=== PATIENT | female | born 1935 | race Caucasian/White ===

== ENCOUNTER → 2017-02-16 | Outpatient (CLI) | payer MEDICARE, BC ==
--- NOTE | 2017-02-16 12:34 | REPMRS ---
Patient History The patient states she had a clinical breast exam in 02/18 Patient is postmenopausal and has history of other cancer at age 70. Family history of breast cancer in mother at age 50 or over. Benign excisional biopsy of the right breast. Digital Woman Screen Mammo: February 16, 2017 - Exam #: [id number] Bilateral CC and MLO view(s) were taken. Technologist: Ernestine Rodriguez, Technologist Prior study comparison: February 14, 2016, digital woman screen mammo performed at [facility]. February 12, 2015, digital woman screen mammo performed at [facility]. February 09, 2014, digital woman screen mammo performed at [facility]. FINDINGS: There are scattered fibroglandular densities. There has been no change in the appearance of the mammogram from the prior studies. There is contour deformity in the right breast unchanged post excisional biopsy. There is a mild amount of scattered fibroglandular density which is fairly symmetric. There is no interval development of dominant mass, architectural distortion, or clustered microcalcification suggestive of malignancy. ASSESSMENT: BI-RADS/ACR category 2 mammogram. Benign finding(s). Recommendation Routine screening mammogram in 1 year (for women over age 40). This mammogram was interpreted with the aid of an FDA-approved computer-aided dectection system. Electronically Signed By: Constantine Hightower MD 02/16/17 1205
== END ==
LOC: M WHC 11:18
PROVIDERS: ATTEND Nurse Practitioner Family
DX: Z12.31 Encounter for screening mammogram for malignant neoplasm of breast (principal); Z78.0 Asymptomatic menopausal state; Z92.89 Personal history of other medical treatment; Z80.3 Family history of malignant neoplasm of breast
CPT/HCPCS: G0202; G0463

== ENCOUNTER → 2018-02-02 | Outpatient (CLI) | payer MEDICARE, BC | LOC: M WHC 11:06 | DX: M81.0 Age-related osteoporosis without current pathological fracture (principal) | CPT/HCPCS: 77080 ==

== ENCOUNTER → 2018-08-12 | Outpatient (REF) | payer MEDICARE, BC ==
[2018-08-12 17:07] LABS: HEMATOCRIT 39.2 % (36.0-47.0); HEMOGLOBIN 12.6 g/dl (12.0-15.5); MEAN CORPUSCULAR HEMOGLOBIN 30.4 pg (27.0-33.0); MEAN CORPUSCULAR HGB CONC 32.1 g/dl (32.0-36.5); MEAN CORPUSCULAR VOLUME 94.5 fl (80.0-96.0); PLATELET COUNT, AUTOMATED 494 10^3/uL (150-450); RED BLOOD COUNT 4.15 10^6/uL (4.00-5.40); RED CELL DISTRIBUTION WIDTH 14.1 % (11.5-14.5); WHITE BLOOD COUNT 14.5 10^3/uL (4.0-10.0)
[2018-08-12 17:18] LABS: ALBUMIN 3.4 GM/DL (3.2-5.2); ALBUMIN/GLOBULIN RATIO 1.21 (1.00-1.93); ALKALINE PHOSPHATASE 202 U/L (45-117); ALT/SGPT 65 U/L (12-78); ANION GAP 8 MEQ/L (8-16); AST/SGOT 40 U/L (7-37); BILIRUBIN,TOTAL 0.4 MG/DL (0.2-1.0); BLOOD UREA NITROGEN 23 MG/DL (7-18); CALCIUM LEVEL 9.3 MG/DL (8.8-10.2); CARBON DIOXIDE LEVEL 31 MEQ/L (21-32); CHLORIDE LEVEL 104 MEQ/L (98-107); CREATININE FOR GFR 1.09 MG/DL (0.55-1.30); GLOMERULAR FILTRATION RATE 51.2 (>32); GLUCOSE, FASTING 102 MG/DL (70-100); POTASSIUM SERUM 4.4 MEQ/L (3.5-5.1); SODIUM LEVEL 143 MEQ/L (136-145); TOTAL PROTEIN 6.2 GM/DL (6.4-8.2)
== END ==
LOC: M SFHCCLAY 10:18
DX: C85.89 Other specified types of non-Hodgkin lymphoma, extranodal and solid organ sites (principal); I10 Essential (primary) hypertension
CPT/HCPCS: 80053

== ENCOUNTER → 2018-08-16 | Outpatient (CLI) | payer MEDICARE, BC | LOC: M CLY 14:42 | DX: J90 Pleural effusion, not elsewhere classified (principal); I51.7 Cardiomegaly; R93.7 Abnormal findings on diagnostic imaging of other parts of musculoskeletal system; M79.89 Other specified soft tissue disorders | CPT/HCPCS: 71046; 80048 ==

== ENCOUNTER → 2018-08-16 | Outpatient (REF) | payer MEDICARE, BC ==
[2018-08-17 12:07] LABS: ANION GAP 7 MEQ/L (8-16); BLOOD UREA NITROGEN 22 MG/DL (7-18); CALCIUM LEVEL 9.1 MG/DL (8.8-10.2); CARBON DIOXIDE LEVEL 32 MEQ/L (21-32); CHLORIDE LEVEL 105 MEQ/L (98-107); CREATININE FOR GFR 1.14 MG/DL (0.55-1.30); GLOMERULAR FILTRATION RATE 48.6 (>32); GLUCOSE, FASTING 100 MG/DL (70-100); POTASSIUM SERUM 4.5 MEQ/L (3.5-5.1); SODIUM LEVEL 144 MEQ/L (136-145)
== END ==
LOC: M SFHCCLAY 14:32
DX: M79.89 Other specified soft tissue disorders (principal); R06.02 Shortness of breath
CPT/HCPCS: 80048

== ENCOUNTER → 2018-08-18 | Outpatient (CLI) | payer MEDICARE, BC | LOC: M CARPUL 07:56 | DX: I50.9 Heart failure, unspecified (principal); I31.3 Pericardial effusion (noninflammatory); J90 Pleural effusion, not elsewhere classified; I34.0 Nonrheumatic mitral (valve) insufficiency | CPT/HCPCS: 93306 ==

== ENCOUNTER → 2018-08-20 | Outpatient (REF) | payer MEDICARE, BC ==
[2018-08-20 16:33] LABS: ALBUMIN 3.3 GM/DL (3.2-5.2); ANION GAP 7 MEQ/L (8-16); BLOOD UREA NITROGEN 26 MG/DL (7-18); CALCIUM LEVEL 9.5 MG/DL (8.8-10.2); CARBON DIOXIDE LEVEL 32 MEQ/L (21-32); CHLORIDE LEVEL 97 MEQ/L (98-107); GLOMERULAR FILTRATION RATE 45.8 (>32); GLUCOSE, FASTING 99 MG/DL (70-100); PHOSPHORUS LEVEL 3.8 MG/DL (2.5-4.9); POTASSIUM SERUM 4.2 MEQ/L (3.5-5.1); SODIUM LEVEL 136 MEQ/L (136-145)
== END ==
LOC: M SFHCCLAY 12:02
DX: I10 Essential (primary) hypertension (principal)
CPT/HCPCS: 80069

== ENCOUNTER → 2018-11-02 | Outpatient (REF) | payer MEDICARE, BC ==
[~2018-11-02] MED LIST: AMLO2.5T3 PO; ANOR1AER PO; ASPI81TA85 PO; CALTCHW5 PO; CAND16TA7 PO; CENTCHW4 PO; CLAR10CA3 PO; FLON1SPR NARES; FURO20TA2 PO; VITA200028 PO; VITA500C24 PO
[2018-11-02 16:38] LABS: ALBUMIN 3.8 GM/DL (3.2-5.2); CALCIUM LEVEL 9.9 MG/DL (8.8-10.2); CREATININE FOR GFR 1.35 MG/DL (0.55-1.30); FREE T4 0.93 NG/DL (0.76-1.46); POTASSIUM SERUM 4.8 MEQ/L (3.5-5.1); THYROID STIMULATING HORMONE 5.28 uIU/ML (0.358-3.740)
== END ==
LOC: M SFHCCLAY 10:27
PROVIDERS: ATTEND Family Medicine
DX: I50.9 Heart failure, unspecified (principal); R60.9 Edema, unspecified

== ENCOUNTER → 2019-02-11 | Outpatient (REF) | payer MEDICARE, BC | LOC: M SFHCCLAY 13:54 | PROVIDERS: ATTEND Family Medicine | DX: I10 Essential (primary) hypertension (principal); Z95.2 Presence of prosthetic heart valve; Z53.8 Procedure and treatment not carried out for other reasons ==

== ENCOUNTER → 2019-02-14 | Outpatient (REF) | payer MEDICARE, BC ==
[2019-02-14 12:52] LABS: CALCIUM LEVEL 9.1 MG/DL (8.8-10.2); CREATININE FOR GFR 0.99 MG/DL (0.55-1.30); POTASSIUM SERUM 4.9 MEQ/L (3.5-5.1)
== END ==
LOC: M SFHCCLAY 09:44
PROVIDERS: ATTEND Family Medicine
DX: I10 Essential (primary) hypertension (principal); Z95.2 Presence of prosthetic heart valve

== ENCOUNTER → 2019-03-22 | Outpatient (REF) | payer MEDICARE, BC ==
[2019-03-22 18:12] LABS: ALBUMIN 3.3 GM/DL (3.2-5.2); CALCIUM LEVEL 9.2 MG/DL (8.8-10.2); CREATININE FOR GFR 1.17 MG/DL (0.55-1.30); PHOSPHORUS LEVEL 3.7 MG/DL (2.5-4.9); POTASSIUM SERUM 4.8 MEQ/L (3.5-5.1)
== END ==
LOC: M LABDRAWC 17:06
PROVIDERS: ATTEND Physician Assistant
DX: I11.0 Hypertensive heart disease with heart failure (principal)

== ENCOUNTER → 2019-07-07 | Outpatient (REF) | payer MEDICARE, BC ==
[2019-07-07 11:34] LABS: HEMATOCRIT 30.9 % (36.0-47.0); HEMOGLOBIN 9.7 g/dl (12.0-15.5); MEAN CORPUSCULAR HEMOGLOBIN 23.1 pg (27.0-33.0); MEAN CORPUSCULAR HGB CONC 31.4 g/dl (32.0-36.5); MEAN CORPUSCULAR VOLUME 73.6 fl (80.0-96.0); PLATELET COUNT, AUTOMATED 677 10^3/uL (150-450); WHITE BLOOD COUNT 10.6 10^3/uL (4.0-10.0)
[2019-07-07 12:07] LABS: CALCIUM LEVEL 9.1 MG/DL (8.8-10.2); CREATININE FOR GFR 0.99 MG/DL (0.55-1.30); POTASSIUM SERUM 4.7 MEQ/L (3.5-5.1)
== END ==
LOC: M SFHCCLAY 09:19
PROVIDERS: ATTEND Family Medicine
DX: I10 Essential (primary) hypertension (principal); Z95.2 Presence of prosthetic heart valve; J44.9 Chronic obstructive pulmonary disease, unspecified

== ENCOUNTER → 2019-08-12 | Outpatient (REF) | payer MEDICARE, BC ==
[~2019-08-12] MED LIST changes: +AMLO10TA5 PO; +CLOP75TA2; +D 101000 PO; +FERR5ELX PO; +MOME0.1S TOP; +SPIR-10; +TRIA1CR80 TOP
[2019-08-12 16:44] LABS: HEMATOCRIT 38.9 % (36.0-47.0); MEAN CORPUSCULAR HEMOGLOBIN 25.1 pg (27.0-33.0); MEAN CORPUSCULAR HGB CONC 30.8 g/dl (32.0-36.5); MEAN CORPUSCULAR VOLUME 81.2 fl (80.0-96.0); PLATELET COUNT, AUTOMATED 406 10^3/uL (150-450); RED BLOOD COUNT 4.79 10^6/uL (4.00-5.40); WHITE BLOOD COUNT 11.1 10^3/uL (4.0-10.0)
[2019-08-12 16:47] LABS: PERCENT SATURATION 61.5 % (13.2-45.0)
== END ==
LOC: M SFHCCLAY 10:03
PROVIDERS: ATTEND Family Medicine
DX: D50.9 Iron deficiency anemia, unspecified (principal)

== ENCOUNTER → 2019-10-12 | Outpatient (REF) | payer MEDICARE, BC ==
[~2019-10-12] MED LIST changes: +LEVA1TAB2 PO
[2019-10-12 16:49] LABS: HEMATOCRIT 41.8 % (36.0-47.0); MEAN CORPUSCULAR HEMOGLOBIN 25.9 pg (27.0-33.0); MEAN CORPUSCULAR HGB CONC 31.1 g/dl (32.0-36.5); MEAN CORPUSCULAR VOLUME 83.4 fl (80.0-96.0); PLATELET COUNT, AUTOMATED 324 10^3/uL (150-450); RED BLOOD COUNT 5.01 10^6/uL (4.00-5.40); WHITE BLOOD COUNT 11.4 10^3/uL (4.0-10.0)
[2019-10-12 16:57] LABS: CALCIUM LEVEL 9.1 MG/DL (8.8-10.2); CREATININE FOR GFR 1.23 MG/DL (0.55-1.30); GLOMERULAR FILTRATION RATE 44.4 (>32); POTASSIUM SERUM 4.6 MEQ/L (3.5-5.1)
== END ==
LOC: M SFHCCLAY 10:15
PROVIDERS: ATTEND Family Medicine
DX: D50.9 Iron deficiency anemia, unspecified (principal); I10 Essential (primary) hypertension

== ENCOUNTER → 2019-10-17 | Outpatient (REF) | payer MEDICARE, BC ==
[~2019-10-17] MED LIST changes: +AMOX500T PO; +PRES10CA2 PO
== END ==
LOC: M SFHCCLAY 07:16
PROVIDERS: ATTEND Family Medicine
DX: R60.0 Localized edema (principal)

== ENCOUNTER 2020-01-09 07:44 | Day surgery (SDC) | payer MEDICARE, BC ==
[~2020-01-09] VITALS: Ht 152.4 cm; Wt 50.3 kg
[~2020-01-09 07:44] MED LIST changes: +CLIN150C14 PO; +DIOV160T6 PO; +LEVO500T3 PO; +LR 1,000 ML IV ONE; +MIRA3350 PO; -SPIR-10; +SPIR-10 PO; +VITAD1000T PO
[2020-01-09] MEDS ORDERED: propofoL 200 MG/20 ML VIAL As Ordered ONE ×3 (09:27→11:07)
[2020-01-09] MEDS ORDERED: LIDOCAINE 2% INJ 100 MG/5 ML SDV (FOR ANES.) As Ordered ONE ×2 (09:27→11:07)
[2020-01-09] MEDS ORDERED: fentaNYL 100 MCG/2 ML INJECTION (J3010) As Ordered ONE (09:36)
--- NOTE | 2020-01-09 11:19 | ROOR ---
Patient Name: Flores López Procedure Date: 01/09/2020 7:44 AM Date of : 1935 Age: 84 Gender: Female Note Status: Finalized Procedure: Upper GI endoscopy Indications: Iron deficiency anemia Providers: Giovany Tavares MD Referring MD: 1. No Referring Physician 1. No Referring Physician, Admin. Requesting Provider: Medicines: General Anesthesia Complications: No immediate complications. Procedure: Pre-Anesthesia Assessment: - Prior to the procedure, a History and Physical was performed, and patient medications and allergies were reviewed. The patient is competent. The risks and benefits of the procedure and the sedation options and risks were discussed with the patient. All questions were answered and informed consent was obtained. Patient identification and proposed procedure were verified by the physician, the nurse and the director of occupational health in the procedure room. Mental Status Examination: alert and oriented. Airway Examination: normal oropharyngeal airway and neck mobility. Respiratory Examination: clear to auscultation. CV Examination: normal. Prophylactic Antibiotics: The patient does not require prophylactic antibiotics. Prior Anticoagulants: The patient has taken aspirin, last dose was day of procedure. ASA Grade Assessment: III - A patient with severe systemic disease. After reviewing the risks and benefits, the patient was deemed in satisfactory condition to undergo the procedure. The anesthesia plan was to use general anesthesia. Immediately prior to administration of medications, the patient was re-assessed for adequacy to receive sedatives. The heart rate, respiratory rate, oxygen saturations, blood pressure, adequacy of pulmonary ventilation, and response to care were monitored throughout the procedure. The physical status of the patient was re-assessed after the procedure. The Endoscope was introduced through the mouth, with the intention of advancing to the esophagus. The scope was advanced to the cricopharyngeal esophagus before the procedure was aborted. Medications were given. I Had difficulty intubating the esophagus with the patient intubated as the tube displaced the opening quite anteriorly and I could not maneuver the scope through, felt quite tight with the scope acutely turned despite deflating the et tube cuff long term and flexing and extending her neck. Procedure was aborted at this point and we proceeded with colonoscopy Findings: Impression: - No specimens collected. Recommendation: - Discharge patient to home (ambulatory). - will consider repeating procedure electively if remains symptomatic. Giovany Tavares MD Giovany Tavares MD 01/09/2020 11:18:50 AM Electronically signed by Giovany Tavares MD Number of Addenda: 0 Note Initiated On: 01/09/2020 7:44 AM Estimated Blood Loss: Estimated blood loss: none.
--- NOTE | 2020-01-09 11:24 | ROOR ---
Patient Name: Flores López Procedure Date: 01/09/2020 7:43 AM Date of : 1935 Age: 84 Gender: Female Note Status: Finalized Procedure: Colonoscopy Indications: Positive Cologuard test Providers: Giovany Tavares MD Referring MD: 1. No Referring Physician 1. No Referring Physician, Admin. Requesting Provider: Medicines: Monitored Anesthesia Care Complications: No immediate complications. Procedure: Pre-Anesthesia Assessment: - Prior to the procedure, a History and Physical was performed, and patient medications and allergies were reviewed. The patient is competent. The risks and benefits of the procedure and the sedation options and risks were discussed with the patient. All questions were answered and informed consent was obtained. Patient identification and proposed procedure were verified by the physician, the nurse and the anesthesiologist in the procedure room. Mental Status Examination: alert and oriented. Airway Examination: normal oropharyngeal airway and neck mobility. Respiratory Examination: clear to auscultation. CV Examination: normal. Prophylactic Antibiotics: The patient does not require prophylactic antibiotics. Prior Anticoagulants: The patient has taken aspirin, last dose was day of procedure. ASA Grade Assessment: III - A patient with severe systemic disease. After reviewing the risks and benefits, the patient was deemed in satisfactory condition to undergo the procedure. The anesthesia plan was to use general anesthesia. Immediately prior to administration of medications, the patient was re-assessed for adequacy to receive sedatives. The heart rate, respiratory rate, oxygen saturations, blood pressure, adequacy of pulmonary ventilation, and response to care were monitored throughout the procedure. The physical status of the patient was re-assessed after the procedure. The Colonoscope was introduced through the anus and advanced to the cecum, identified by appendiceal orifice and ileocecal valve. The colonoscopy was somewhat difficult due to significant looping, a tortuous colon and the patient's cardiovascular instability (hypotension). The patient tolerated the procedure. The quality of the bowel preparation was good. Findings: Hemorrhoids were found on perianal exam. Three flat polyps were found in the sigmoid colon. The polyps were diminutive in size. These polyps were removed with a cold biopsy forceps. Resection and retrieval were complete. Estimated blood loss was minimal. The entire examined colon appeared normal on direct and retroflexion views. A single small angiodysplastic lesion without bleeding was found in the cecum. Impression: - Hemorrhoids found on perianal exam. - Three diminutive polyps in the sigmoid colon, removed with a cold biopsy forceps. Resected and retrieved. - The entire examined colon is normal on direct and retroflexion views. Recommendation: - Discharge patient to home (ambulatory). - Await pathology results. - Telephone my office for pathology results in 1 week. Giovany Tavares MD Giovany Tavares MD 01/09/2020 11:24:17 AM Electronically signed by Giovany Tavares MD Number of Addenda: 0 Note Initiated On: 01/09/2020 7:43 AM Estimated Blood Loss: Estimated blood loss was minimal.
[2020-01-09] MEDS ORDERED: LR 1,000 ML IV SCH (11:45)
[2020-01-09] MEDS ORDERED: ONDANSETRON 4MG/2ML VIAL (J2405) IV PRN (11:45)
[2020-01-09] MEDS ORDERED: IPRATROPIUM 0.5MG/ALBUTEROL 2.5MG INH SOL UD 3ML (DUONEB)(J7620) As Ordered ONE (11:57)
[2020-01-09] MEDS ORDERED: IPRATROPIUM 0.5MG/ALBUTEROL 2.5MG INH SOL UD 3ML (DUONEB)(J7620) INH ONE (12:00)
[2020-01-09 13:25] VITALS: BP 140/64
[2020-01-09] MEDS ORDERED: LEVA750T7 PO (13:31)
--- NOTE | 2020-01-09 14:04 | REP ---
CHEST, SINGLE VIEW: Single view of the chest is performed and compared to a prior study of 08/16/2018. There is scattered diffuse infiltrate in the left lung. There is a small amount of pleural fluid/thickening. Right lung is clear. Heart size is not well evaluated. There is calcification of the thoracic aorta. Prosthetic heart valve is noted. Metallic clips are seen in the left upper quadrant of the abdomen. Electronically Signed by Can Reeves MD 01/09/2020 03:14 P
== END 2020-01-09 13:40 | disposition home or self-care (01) ==
LOC: M SDC 07:44
PROVIDERS: ATTEND Surgery
DX: K63.5 Polyp of colon (principal); D64.9 Anemia, unspecified; K62.5 Hemorrhage of anus and rectum; R19.5 Other fecal abnormalities; K21.9 Gastro-esophageal reflux disease without esophagitis; J44.9 Chronic obstructive pulmonary disease, unspecified; Z85.72 Personal history of non-Hodgkin lymphomas; Z79.51 Long term (current) use of inhaled steroids; M81.0 Age-related osteoporosis without current pathological fracture; Z79.82 Long term (current) use of aspirin; Z79.899 Other long term (current) drug therapy; Z88.0 Allergy status to penicillin; Z91.041 Radiographic dye allergy status; Z88.2 Allergy status to sulfonamides; Z88.8 Allergy status to other drugs, medicaments and biological substances
CPT/HCPCS: 43235; 45380; 71045; 88305; J3010

== ENCOUNTER → 2020-02-10 | Outpatient (REF) | payer MEDICARE, BC ==
[~2020-02-10] MED LIST changes: +LEVA750T7 PO; -LR 1,000 ML IV ONE
[2020-02-10 18:42] LABS: ALBUMIN 3.7 GM/DL (3.2-5.2); BILIRUBIN,TOTAL 0.5 MG/DL (0.2-1.0); CALCIUM LEVEL 9.4 MG/DL (8.8-10.2); CREATININE FOR GFR 1.42 MG/DL (0.55-1.30); GLOMERULAR FILTRATION RATE 37.5 (>32); TOTAL PROTEIN 6.7 GM/DL (6.4-8.2)
[2020-02-10 18:44] LABS: HEMATOCRIT 46.9 % (36.0-47.0); HEMOGLOBIN 15.5 g/dl (12.0-15.5); MEAN CORPUSCULAR HEMOGLOBIN 29.3 pg (27.0-33.0); MEAN CORPUSCULAR VOLUME 88.7 fl (80.0-96.0); PLATELET COUNT, AUTOMATED 234 10^3/uL (150-450); RED BLOOD COUNT 5.29 10^6/uL (4.00-5.40); WHITE BLOOD COUNT 17.5 10^3/uL (4.0-10.0)
[2020-02-10 19:09] LABS: ANISOCYTOSIS 2+; ATYPICAL LYMPH 2 % (0-5); LYMPHOCYTES 11 % (16-44); MONOCYTES 24 % (0-5); NEUTROPHILS 61 % (28-66); PLATELET ESTIMATE NORMAL (NORMAL)
[2020-02-10 19:10] LABS: BURR CELLS 2+
== END ==
LOC: M SFHCCLAY 10:12
PROVIDERS: ATTEND Family Medicine
DX: C85.89 Other specified types of non-Hodgkin lymphoma, extranodal and solid organ sites (principal); I10 Essential (primary) hypertension

== ENCOUNTER → 2020-12-20 | Outpatient (REF) | payer MEDICARE, BC ==
[~2020-12-20] MED LIST changes: -AMLO10TA5 PO; +AMLO1TAB25 PO; -ASPI81TA85 PO; +ASPI81TA86 PO; -CLIN150C14 PO; +CLIN150C15 PO; +D31000TA2 PO; -VITAD1000T PO
[2020-12-20 12:33] LABS: BASO # 0.1 10^3/uL (0.0-0.2); BASO % 0.6 % (0.0-1.0); EOS # 0.9 10^3/uL (0.0-0.5); HEMATOCRIT 45.4 % (36.0-47.0); HEMOGLOBIN 14.7 g/dl (12.0-15.5); LYMPH # 2.9 10^3/uL (1.5-5.0); LYMPH % 19.9 % (24.0-44.0); MEAN CORPUSCULAR HEMOGLOBIN 30.4 pg (27.0-33.0); MEAN CORPUSCULAR HGB CONC 32.4 g/dl (32.0-36.5); MEAN CORPUSCULAR VOLUME 93.8 fl (80.0-96.0); MONO % 14.3 % (2.0-8.0); NEUTROPHILS # 8.4 10^3/uL (1.5-8.5); NEUTROPHILS % 58.9 % (36.0-66.0); PLATELET COUNT, AUTOMATED 262 10^3/uL (150-450); RED BLOOD COUNT 4.84 10^6/uL (4.00-5.40)
[2020-12-20 12:57] LABS: CALCIUM LEVEL 9.2 MG/DL (8.8-10.2); CHOLESTEROL RISK RATIO 2.456 (<5); CREATININE FOR GFR 1.15 MG/DL (0.55-1.30); GLOMERULAR FILTRATION RATE 47.9 (>32); POTASSIUM SERUM 4.7 MEQ/L (3.5-5.1)
[2020-12-20 13:13] LABS: WHITE BLOOD COUNT 14.3 10^3/uL (4.0-10.0)
== END ==
LOC: M LABDRAWC 11:31
PROVIDERS: ATTEND Physician Assistant
DX: E78.5 Hyperlipidemia, unspecified (principal)

== ENCOUNTER → 2021-08-07 | Outpatient (CLI) | payer MEDICARE, BC ==
[~2021-08-07] MED LIST changes: -CLIN150C15 PO; +CLIN150C17 PO
--- NOTE | 2021-08-07 11:10 | REP ---
INDICATION: J44.9, COPD. COMPARISON: Multiple the latest 01/09/2020 a portable exam TECHNIQUE: PA and lateral FINDINGS: There is cardiomegaly. The intracardiac device is unchanged. There are patchy bibasilar opacities left greater than right but improved compared to the prior exam. The lung horvath are hyperexpanded. There is no change in the osseous structures. There are multiple age undetermined but likely old vertebral body compression fractures. IMPRESSION: Likely chronic lung field changes as described above particularly in the left lung base, however, since are no recent priors for comparison follow-up to ensure stability is suggested. <Electronically signed by Wes Campos > 08/07/21 [id number]
== END ==
LOC: M CLY 10:23
PROVIDERS: ATTEND Family Medicine
DX: I51.7 Cardiomegaly (principal); R91.8 Other nonspecific abnormal finding of lung field; J44.9 Chronic obstructive pulmonary disease, unspecified; Z72.0 Tobacco use; Z23 Encounter for immunization
CPT/HCPCS: 71046; 90682; G0008; G0463

== ENCOUNTER → 2021-12-04 | Outpatient (REF) | payer MEDICARE, BC ==
[~2021-12-04] MED LIST changes: +CAND16TA17 PO; -CAND16TA7 PO; -D31000TA2 PO; -LEVO500T3 PO; +LEVO500T4 PO; +VITA100093 PO
[2021-12-04 17:51] LABS: BASO # 0.1 10^3/uL (0.0-0.2); BASO % 0.7 % (0.0-1.0); EOS # 0.3 10^3/uL (0.0-0.5); EOS % 2.6 % (0.0-3.0); HEMATOCRIT 44.6 % (36.0-47.0); HEMOGLOBIN 14.3 g/dl (12.0-15.5); LYMPH # 2.3 10^3/uL (1.5-5.0); LYMPH % 21.3 % (24.0-44.0); MEAN CORPUSCULAR HEMOGLOBIN 29.9 pg (27.0-33.0); MEAN CORPUSCULAR HGB CONC 32.1 g/dl (32.0-36.5); MEAN CORPUSCULAR VOLUME 93.1 fl (80.0-96.0); MONO % 17.6 % (2.0-8.0); NEUTROPHILS # 6.3 10^3/uL (1.5-8.5); NEUTROPHILS % 57.5 % (36.0-66.0); PLATELET COUNT, AUTOMATED 274 10^3/uL (150-450); RED BLOOD COUNT 4.79 10^6/uL (4.00-5.40)
[2021-12-04 18:16] LABS: CALCIUM LEVEL 9.4 MG/DL (8.8-10.2); CREATININE FOR GFR 1.12 MG/DL (0.55-1.30); GLOMERULAR FILTRATION RATE 49.2 (>32)
[2021-12-04 18:17] LABS: ALBUMIN 3.8 GM/DL (3.2-5.2); BILIRUBIN,TOTAL 0.4 MG/DL (0.2-1.0); CHOLESTEROL RISK RATIO 2.188 (<5); FREE T4 1.11 NG/DL (0.76-1.46); PERCENT SATURATION 17.9 % (13.2-45.0); THYROID STIMULATING HORMONE 2.1 uIU/ML (0.358-3.740); TOTAL PROTEIN 6.7 GM/DL (6.4-8.2)
[2021-12-04 19:55] LABS: MONO # 1.9 10^3/uL (0.0-0.8)
[2021-12-04 21:08] LABS: ERYTHROCYTE SEDIMENTATION RATE 5 mm/hr (0-30)
== END ==
LOC: M SFHCCLAY 10:15
PROVIDERS: ATTEND Family Medicine
DX: C85.89 Other specified types of non-Hodgkin lymphoma, extranodal and solid organ sites (principal); I10 Essential (primary) hypertension; J44.9 Chronic obstructive pulmonary disease, unspecified; Z90.81 Acquired absence of spleen; Z95.2 Presence of prosthetic heart valve

== ENCOUNTER → 2022-06-11 | Outpatient (REF) | payer MEDICARE, BC ==
[~2022-06-11] MED LIST changes: +LEVO1TAB39 PO; -LEVO500T4 PO
[2022-06-11 17:44] LABS: BASO # 0.1 10^3/uL (0.0-0.2); BASO % 0.6 % (0.0-1.0); EOS # 0.4 10^3/uL (0.0-0.5); EOS % 3.5 % (0.0-3.0); HEMATOCRIT 42.3 % (36.0-47.0); HEMOGLOBIN 13.6 g/dl (12.0-15.5); LYMPH # 2.5 10^3/uL (1.5-5.0); LYMPH % 22.2 % (24.0-44.0); MEAN CORPUSCULAR HEMOGLOBIN 30.6 pg (27.0-33.0); MEAN CORPUSCULAR HGB CONC 32.2 g/dl (32.0-36.5); MEAN CORPUSCULAR VOLUME 95.3 fl (80.0-96.0); MONO % 15.2 % (2.0-8.0); NEUTROPHILS # 6.6 10^3/uL (1.5-8.5); NEUTROPHILS % 58.2 % (36.0-66.0); PLATELET COUNT, AUTOMATED 285 10^3/uL (150-450); RED BLOOD COUNT 4.44 10^6/uL (4.00-5.40); WHITE BLOOD COUNT 11.4 10^3/uL (4.0-10.0)
[2022-06-11 17:49] LABS: MONO # 1.7 10^3/uL (0.0-0.8)
[2022-06-11 18:42] LABS: ALBUMIN 3.7 GM/DL (3.2-5.2); BILIRUBIN,TOTAL 0.4 MG/DL (0.2-1.0); CALCIUM LEVEL 9.2 MG/DL (8.8-10.2); CHOLESTEROL RISK RATIO 2.217 (<5); CREATININE FOR GFR 1.2 MG/DL (0.55-1.30); GLOMERULAR FILTRATION RATE 45.3 (>32); POTASSIUM SERUM 5.7 MEQ/L (3.5-5.1); THYROID STIMULATING HORMONE 2.26 uIU/ML (0.358-3.740); TOTAL PROTEIN 6.5 GM/DL (6.4-8.2)
[2022-06-11 19:20] LABS: TOTAL 25(OH) VITAMIN D 46.9 NG/ML (30.0-100.0)
== END ==
LOC: M SFHCCLAY 10:07
PROVIDERS: ATTEND Family Medicine
DX: K21.9 Gastro-esophageal reflux disease without esophagitis (principal); C85.89 Other specified types of non-Hodgkin lymphoma, extranodal and solid organ sites; M81.0 Age-related osteoporosis without current pathological fracture; Z95.2 Presence of prosthetic heart valve; Z90.81 Acquired absence of spleen; Z79.899 Other long term (current) drug therapy

== ENCOUNTER → 2023-07-28 | Outpatient (REF) | payer MEDICARE, BC ==
[~2023-07-28] MED LIST changes: +ACET-907 PO; +ARTIDRO4 OU; +ECOT81TA5 PO; +EMOL454C2 TP; +FAMO20TA5 PO; +FERR220E10 PO; -FERR5ELX PO
[2023-07-28 18:39] LABS: ALBUMIN 3.7 G/DL (3.2-5.2); BILIRUBIN,TOTAL 0.6 MG/DL (0.3-1.2); CALCIUM LEVEL 9.2 MG/DL (8.3-10.6); CREATININE FOR GFR 1.29 MG/DL (0.55-1.30); GLOMERULAR FILTRATION RATE 41.6 (>32); POTASSIUM SERUM 4.6 MMOL/L (3.5-5.1); TOTAL PROTEIN 6.8 G/DL (5.7-8.2)
[2023-07-28 18:41] LABS: THYROID STIMULATING HORMONE 3.211 uIU/ML (0.55-4.78)
== END ==
LOC: M SFHCCLAY 12:11
PROVIDERS: ATTEND Family Medicine
DX: C44.99 Other specified malignant neoplasm of skin, unspecified (principal); Z79.899 Other long term (current) drug therapy

== ENCOUNTER 2023-07-29 11:05 | Inpatient (IN) | payer MEDICARE, BC ==
[~2023-07-29 11:05] MED LIST changes: -ACET-907 PO; -ARTIDRO4 OU; -ECOT81TA5 PO; -EMOL454C2 TP; -FAMO20TA5 PO
[2023-07-29 12:05] LABS: VENOUS BASE EXCESS -1.1 (-2.0-2.0); VENOUS HCO3 23.4 MMOL/L (23.0-27.0); VENOUS O2 SATURATION 70.7 % (60.0-80.0); VENOUS PARTIAL PRESSURE CO2 38.5 mmHg (38.0-50.0); VENOUS PARTIAL PRESSURE O2 36.2 mmHg (30.0-50.0); VENOUS PH 7.401 UNITS (7.330-7.430); VENOUS STANDARD HCO3 22.9 MMOL/L; VENOUS TOTAL CO2 24.5 MMOL/L (24.0-28.0)
[2023-07-29 12:14] LABS: BASO # 0.1 10^3/uL (0.0-0.2); BASO % 0.2 % (0.0-1.0); EOS % 0.2 % (0.0-3.0); HEMATOCRIT 37.5 % (36.0-47.0); HEMOGLOBIN 12.6 g/dl (12.0-15.5); LYMPH # 1.7 10^3/uL (1.5-5.0); LYMPH % 6.8 % (24.0-44.0); MEAN CORPUSCULAR HGB CONC 33.6 g/dl (32.0-36.5); MEAN CORPUSCULAR VOLUME 89.3 fl (80.0-96.0); MONO % 9.8 % (2.0-8.0); NEUTROPHILS # 20.7 10^3/uL (1.5-8.5); NEUTROPHILS % 82.2 % (36.0-66.0); WHITE BLOOD COUNT 25.1 10^3/uL (4.0-10.0)
[2023-07-29 12:24] LABS: INR 1.37; PROTHROMBIN TIME 16.5 SECONDS (12.5-14.5)
[2023-07-29 12:31] LABS: ALBUMIN 3.6 G/DL (3.2-5.2); BILIRUBIN,DIRECT 0.3 MG/DL (<0.4); BILIRUBIN,TOTAL 0.8 MG/DL (0.3-1.2); CALCIUM LEVEL 9.3 MG/DL (8.3-10.6); CREATININE FOR GFR 1.1 MG/DL (0.55-1.30); POTASSIUM SERUM 4.1 MMOL/L (3.5-5.1); TOTAL PROTEIN 6.8 G/DL (5.7-8.2)
[2023-07-29 12:35] LABS: MONO # 2.5 10^3/uL (0.0-0.8); PLATELET COUNT, AUTOMATED 36 10^3/uL (150-450)
[2023-07-29] MEDS ORDERED: PROHANCE 279.3MG/ML 5ML VIAL As Ordered ONE (15:52)
[2023-07-29] MEDS ORDERED: diphenhydrAMINE 50MG/ML VIAL IV STA (18:45)
[2023-07-29] MEDS ORDERED: methylPREDNISolone 125MG 2ML VIAL IV ONE (18:45)
[2023-07-29] MEDS ORDERED: LR 1,000 ML IV SCH (20:20)
[2023-07-29] MEDS ORDERED: ACETAMINOPHEN TAB 650MG DOSE (2X325MG) PO PRN (20:20)
[2023-07-29] MEDS ORDERED: ACET-907 PO (20:38)
[2023-07-29] MEDS ORDERED: FAMO20TA5 PO (20:38)
[2023-07-29] MEDS ORDERED: EMOL454C2 TP (20:43)
[2023-07-29] MEDS ORDERED: ECOT81TA5 PO (20:43)
[2023-07-29 20:47] LABS: CHOLESTEROL RISK RATIO 3.53 (<5); HDL CHOLESTEROL 68.8 MG/DL (>40); LDL CHOLESTEROL 145.4 MG/DL (<100); NON-HDL-C 174.2 MG/DL
[2023-07-29] MEDS ORDERED: ARTIDRO4 OU (20:47)
[2023-07-29] MEDS ORDERED: HOME MED LIST COMPLETE! XX SCH (20:50)
[2023-07-29] MEDS ORDERED: DOCUSATE SODIUM 100MG CAPSULE PO SCH (21:00)
[2023-07-29 21:40] VITALS: BP 143/65; TEMP 99.5; O2SAT 96
[2023-07-29 22:03] LABS: HEMOGLOBIN A1c 4.8 % (4.0-6.0)
[2023-07-29] MEDS ORDERED: LORazepam 2 MG/ML 1ML VIAL IV PRN (23:10)
[2023-07-29] MEDS ORDERED: ONDANSETRON 4MG ORAL DISINTEGRATING TAB PO PRN (23:10)
[2023-07-29] MEDS ORDERED: MORPHINE 2 MG/ML 1ML VIAL IV PRN (23:10)
[2023-07-29] MEDS ORDERED: ONDANSETRON 4MG 2ML VIAL IV PRN (23:10)
[2023-07-29] MEDS ORDERED: SCOPOLAMINE 1MG TRANSDERMAL PATCH TOP PRN (23:10)
[2023-07-30] MEDS: LORazepam 1 MG TAB PO PRN ×2 (13:56→23:29)
[2023-07-30] MEDS: MORPHINE 10MG/0.5ML ORAL CONCENTRATE SOLUTION U/D SL PRN ×2 (13:57→23:29)
[2023-07-31] MEDS: LORazepam 1 MG TAB PO PRN (15:46)
[2023-07-31] MEDS: MORPHINE 10MG/0.5ML ORAL CONCENTRATE SOLUTION U/D SL PRN (15:46)
[2023-07-31] MEDS: diphenhydrAMINE 25MG CAP PO PRN (20:13)
[2023-08-01] MEDS: LORazepam 1 MG TAB PO PRN ×3 (07:41→22:20)
[2023-08-01] MEDS: diphenhydrAMINE 25MG CAP PO PRN (15:09)
[2023-08-01] MEDS: MORPHINE 10MG/0.5ML ORAL CONCENTRATE SOLUTION U/D SL PRN (15:09)
[2023-08-01] MEDS ORDERED: MORPHINE 10MG/0.5ML ORAL CONCENTRATE SOLUTION U/D SL PRN ×2 (16:50)
[2023-08-01] MEDS ORDERED: oxyCODONE 5MG TAB PO PRN (23:00)
[2023-08-02] MEDS: LORazepam 1 MG TAB PO PRN ×5 (06:15→23:10)
== END 2023-08-03 13:00 | disposition expired | DRG 951 ==
LOC: EDBD 11:05 → M ED 11:05 → M ED INP 20:18 → M ICU 21:33 → M MS5PR 07-30 10:00
PROVIDERS: ADMIT Internal Medicine; ATTEND Internal Medicine Nephrology
DX: Z51.5 Encounter for palliative care (principal); I63.9 Cerebral infarction, unspecified; G93.41 Metabolic encephalopathy; I69.354 Hemiplegia and hemiparesis following cerebral infarction affecting left non-dominant side; C34.12 Malignant neoplasm of upper lobe, left bronchus or lung; C79.31 Secondary malignant neoplasm of brain; C79.51 Secondary malignant neoplasm of bone; E46 Unspecified protein-calorie malnutrition; J90 Pleural effusion, not elsewhere classified; J98.11 Atelectasis; D69.6 Thrombocytopenia, unspecified; Z66 Do not resuscitate; J30.9 Allergic rhinitis, unspecified; E78.5 Hyperlipidemia, unspecified; F17.210 Nicotine dependence, cigarettes, uncomplicated; M81.0 Age-related osteoporosis without current pathological fracture; J44.9 Chronic obstructive pulmonary disease, unspecified; I10 Essential (primary) hypertension; C44.619 Basal cell carcinoma of skin of left upper limb, including shoulder; Z95.2 Presence of prosthetic heart valve; I69.320 Aphasia following cerebral infarction; I69.391 Dysphagia following cerebral infarction; Z85.72 Personal history of non-Hodgkin lymphomas; Z98.41 Cataract extraction status, right eye; Z98.42 Cataract extraction status, left eye; Z90.81 Acquired absence of spleen; Z79.82 Long term (current) use of aspirin; Z79.899 Other long term (current) drug therapy; Z88.0 Allergy status to penicillin; Z88.2 Allergy status to sulfonamides; Z88.8 Allergy status to other drugs, medicaments and biological substances; Z91.041 Radiographic dye allergy status; Z20.822 Contact with and (suspected) exposure to COVID-19